=== PATIENT | female | born 1945 | race Caucasian/White ===

== ENCOUNTER → 2020-03-22 | Day surgery (SDC) | payer MEDICARE, BC ==
[2020-03-20 12:15] LABS: BASOPHILS % (AUTO) 1.9 % (0.0-2.0); EOSINOPHILS % (AUTO) 4.7 % (0.0-3.0); HEMOGLOBIN 13.2 G/DL (12.0-16.0); LYMPHOCYTES % (AUTO) 11.5 % (20.0-45.0); MEAN CORPUSCULAR VOLUME 93 FL (80-99); MONOCYTES % (AUTO) 7.9 % (1.0-10.0); PLATELET COUNT 186 K/UL (150-450); RED CELL DISTRIBUTION WIDTH 12.9 % (11.6-14.8); WHITE BLOOD COUNT 9.4 K/UL (4.8-10.8)
[2020-03-20 12:23] LABS: ANION GAP 7 mmol/L (5-15); BLOOD UREA NITROGEN 20 mg/dL (7-18); CALCIUM 9.6 MG/DL (8.5-10.1); CARBON DIOXIDE 28 MMOL/L (21-32); CHLORIDE 106 MMOL/L (98-107); CREATININE 1.3 MG/DL (0.55-1.30); POTASSIUM 4.4 MMOL/L (3.5-5.1); SODIUM 141 MMOL/L (136-145)
[2020-03-20 12:24] LABS: INR 0.9 (0.9-1.1)
[2020-03-20 12:37] LABS: ALANINE AMINOTRANSFERASE 16 U/L (12-78); ALBUMIN 3.3 G/DL (3.4-5.0); ALBUMIN/GLOBULIN RATIO 1.1 (1.0-2.7); ALKALINE PHOSPHATASE 127 U/L (46-116); ASPARTATE AMINO TRANSFERASE 21 U/L (15-37); BILIRUBIN,TOTAL 0.4 MG/DL (0.2-1.0); FERRITIN 39 NG/ML (8-388)
[2020-03-20 13:00] LABS: % IRON SATURATION 15 % (15-50); IRON 57 ug/dL (50-175); TOTAL IRON BINDING CAPACITY 388 ug/dL (250-450)
--- NOTE | 2020-03-21 21:30 | Pre-op HX & Phy Repo 2 SIG ---
DATE OF ADMISSION: 03/22/2020 PRE-ENDOSCOPY HISTORY AND PHYSICAL SCHEDULED FOR OUTPATIENT ENDOSCOPY: 03/22/2020. 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 She has been using a stent for the past 6 months without benefit. She has difficulty inserting her intubation catheter to evacuate stool and gas in 2 areas superficially. She is scheduled to undergo endoscopy of her Stinson continent ileostomy pouch. She has a past history of ulcerative colitis. PAST MEDICAL HISTORY: She has hypertension and takes fosinopril, metoprolol. She has pain from back and neck operations in the past. She has taken tramadol. She uses Advair and Spiriva inhalers for asthma. ALLERGIES TO MEDICATIONS: None. OPERATIONS: Cervical and lumbar spine surgeries, augmentation mammoplasty, and see complete list of abdominal surgeries at the end of this dictation. PHYSICAL EXAMINATION: The patient is arriving from out of town. Should be examined upon arrival and dictated separately. IMPRESSION: 1. 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 2. History of ulcerative colitis. 3. STATUS POST MULTIPLE ABDOMINAL OPERATIONS: 3.1. Total colectomy with ileoanal pull-through and diverting ileostomy in December 1985. 3.2. Closure of ileostomy in April 1986. 3.3. Creation of Jen ileostomy with defunctionalization of the distal small bowel loop leading to the anus without any J-pouch in 1986. 3.4. Creation of Stinson continent ileostomy in 1992. 3.5. Revision of Stinson pouch stoma in 2005. 3.6. Laparotomy with resection of obstructed defunctionalized closed loop with abdominoperineal proctectomy and enterotomy to extract small intestine enterolith in January 2011. 3.7. Laparotomy with revision of Stinson continent ileostomy valve and revision of stoma in depth 01/05/2015. 3.8. Revision of continent ileostomy stoma stricture 05/15/2015. PLAN AND DISCUSSION: The patient will undergo pouch endoscopy without requiring anesthesia or sedation. She understands the procedure, having been through it before. Jonathon Patrick M.D. DR: MATI JOB#: [id number] CC: AMADA
[~2020-03-22] VITALS: Ht 165.1 cm; Wt 59.0 kg
[~2020-03-22] MED LIST: ADVAIR 250-501 EACH INH; AMLODIPINE BESYL5 MG ORAL; COMBIVENT RESPIM4 GM IH; FOSINOPRIL SODI10 MG ORAL; HYDROXYZINE HCL25 M1 PO; LORAZEPAM2 MG ORAL; METOPROLOL SUCC PO; SPIRIVA18 MCG INH; TRAMADOL HCL50 MG ORAL; VITAMIN D350 MCG PO; Vitamin B12 1000mcg/ml Inj IM ONE
[2020-03-22 11:28] VITALS: BP 126/61
--- NOTE | 2020-03-22 11:59 | Pre-Procedure Note/Attestation ---
Pre-Procedure Note/Attestation Complete Prior to Procedure Planned Procedure: not applicable Procedure Narrative: Stinson continent ileostomy pouch endoscopy Indications for Procedure Pre-Operative Diagnosis: Stinson continent ileostomy stoma stenosis Attestation I attest that I discussed the nature of the procedure; its benefits; risks and complications; and alternatives (and the risks and benefits of such alternatives ), prior to the procedure, with the patient (or the patient's legal technical services representative). I attest that, if there was a reasonable possibility of needing a blood transfusion, the patient (or the patient's legal technical services representative) was given the [facility] standardized written summary, pursuant to the [place] Blood Safety Act ([place] Health and Safety Code # 1645, as amended). I attest that I re-evaluated the patient just prior to the surgery and that there has been no change in the patient's H&P, except as documented below: none Jonathon Patrick MD Mar 22, 2020 11:59
--- NOTE | 2020-03-22 12:45 | Brief Operative Note ---
Immediate Post Operative Note Operative Note Pre-op Diagnosis: Stinson continent ileostomy stoma stenosis Procedure: Stinsno pouch endoscopy Post-op Diagnosis: same Post-op Diagnosis: same as pre-op Findings: consistent w/pre-op dx studies Surgeon: raz Anesthesia: other - none Specimen: none Complications: none Condition: stable Fluids: none Estimated Blood Loss: none Drains: none Implant(s) used?: No Jonathon Patrick MD Mar 22, 2020 12:45
[2020-03-22 12:50] VITALS: BP 119/60
--- NOTE | 2020-03-22 16:14 | Procedure Note ---
DATE OF PROCEDURE: 03/22/2020 ENDOSCOPIST: Jonathon Patrick MD. ANESTHESIA: None. SEDATION: None. PRE-ENDOSCOPY DIAGNOSES: 1. Malfunctioning Stinson continent ileostomy with recurrent stoma and access segment stenosis. 2. History of ulcerative colitis. 3. Status post multiple abdominal operations including total colectomy followed by ileoanal pull-through, ultimately resected with creation of a Stinson continent ileostomy in 1992. She required revision of the stoma and valve in 2014 and revision of the stoma in May 2015. POSTOPERATIVE DIAGNOSES: 1. Malfunctioning Stinson continent ileostomy with recurrent stoma and access segment stenosis. 2. History of ulcerative colitis. 3. Status post multiple abdominal operations including total colectomy followed by ileoanal pull-through, ultimately resected with creation of a Stinson continent ileostomy in 1992. She required revision of the stoma and valve in 2014 and revision of the stoma in May 2015. OPERATION PERFORMED: Stinson continent ileostomy pouch endoscopy. FINDINGS: A stoma stricture at the mucocutaneous junction and a moderately severe stenosis at 5-6 cm deep, likely within the valve segment. The patient has difficulty with intubation and pain with intubation, but no incontinence. DESCRIPTION OF PROCEDURE: The patient was positioned supine in the GI lab without any anesthesia or sedation given or required. Using a GIF-P140 endoscope, I was able to get it into the stoma orifice and observed the above findings. The distance to the tip of the valve was approximately 9 cm. The pouch was distensible and was normal with normal mucosa without any inflammation. Retroflexed views revealed a circumferentially well-formed nipple valve. Withdrawal views revealed narrowing within the valve segment as well as at the mucocutaneous junction. Following removal of the endoscope, I was able to insert a 28-Georgian Boateng catheter with some manipulation through the deeper stenotic area into the pouch to decompress it. I removed the 28-Georgian Boateng and a 26-Georgian Boateng catheter was able to be inserted more readily. The patient will require laparotomy and likely creation of a new valve stoma and access segment. She will be given the 2 Boateng catheters and scheduled for surgery. She tolerated the endoscopy well. Jonathon Patrick M.D. DR: Peter JOB#: [id number] CC:
== END | disposition home or self-care (01) ==
LOC: SUR 11:02
DX: K94.13 Enterostomy malfunction (principal); Z90.49 Acquired absence of other specified parts of digestive tract; I10 Essential (primary) hypertension; Z79.899 Other long term (current) drug therapy
CPT/HCPCS: 36415; 44380; 80053; 82607; 82728; 82746; 83540; 83550; 85025; 85610; 85730; J3420